=== PATIENT | male | born 1965 | race Two or more races ===

== ENCOUNTER 2025-06-15 21:18 | Inpatient (IN) | payer OTHER ==
[~2025-06-15] VITALS: Ht 170.2 cm; Wt 62.5 kg
[2025-06-15 21:46] LABS: MEAN PLATELET VOLUME 6.7 FL (7.4-10.4); RED CELL DISTRIBUTION WIDTH 14.9 % (11.5-14.5)
--- NOTE | 2025-06-15 21:56 | Physician Documentation ---
History of Present Illness General Chief Complaint: Dizziness Stated Complaint: DIZZINESS Time Seen by MD: 21:40 OK to notify your PCP?: Yes History of Present Illness Initial Comments This is a very pleasant 59-year-old gentleman with a no significant past medical history who presented for evaluation of sudden onset dizziness/near-syncope, diaphoresis, chest pain, shortness a breath shortly prior to arrival. This occurred while he was at work but not actively working. No obvious trigger p rovocation. It is exertional. Not positional. His chest pain radiates into his left upper arm. Never had this in the past. Did not attempt to treat it. No ripping or tearing chest pain. No concern for tobacco, alcohol or illicit substances use History of asthma. Has been using his inhaler daily for the last month. Which is unusual for him. Medication Reconciliation Allergies: Coded Allergies: No Known Allergies (Unverified , 06/15/25) Review of Systems ROS 10 point review of systems was performed and unless noted above in HPI is negative for acute process/complaint. Physical Exam Physical Exam Vital Signs: Temperature: 96.8, Source: Temporal, Heart Rate: 81, Respiratory Rate: 15, BP: 124/73, Pulse Oximetry: 99, Weight: 62.500 Physical Exam GENERAL: Awake, alert, oriented, GCS 15, no apparent distress, non-toxic appearing, answers questions, follows commands appropriately. No longer diaphoretic. Examined in bed 3. HEENT: Atraumatic, normocephalic, pupils equal, extraocular muscles intact, sclerae anicteric, mucus membranes moist, oropharynx is clear, no stridor. NECK: supple, full active range of motion, trachea midline, no thyromegaly, no lymphadenopathy, no JVD. CARDIOVASCULAR: regular rate/rhythm, no murmurs/gallops/rubs, Pulses are 2+ in all extremities and symmetric. Capillary refill less than 2 seconds. PULMONARY: Nonlabored, good air movement ,no respiratory distress, speaking in full sentences, clear to auscultation bilaterally, no wheezing, no ronchi, no rales, no accessory muscle use. GASTROINTESTINAL: Soft, non-tender, non-distended, normal active bowel sounds, no organomegaly, no pulsatile masses, no CVA tenderness. NEUROLOGIC: Lucid with normal mental status. Normal facial symmetry. Moves all extremities symmetrically and with purpose. No truncal ataxia. Speech is fluid without evidence of dysarthria or aphasia, no focal deficits appreciated. MUSCULOSKELETAL: There is full range of motion of all extremities. There is no joint pain or joint swelling or joint erythema. There is no muscle pain or tenderness or swelling. EXTREMITIES: warm, well-perfused, no cyanosis, no clubbing, no edema, no acute deformities. Skin: warm, dry, no rashes or lesions, no jaundice, no petechiae orpurpura. No ecchymosis. PSYCHIATRIC: Normal affect, normal insight, normal concentration. Focused exam: [] Progress Results/Orders Results/Orders Orders - DEMARCO MCKEON DO Chest,Single View (06/15/25 21:25) Monitor (06/15/25 21:25) Saline Lock (06/15/25 21:25) Oxygen (06/15/25 21:25) Electrocardiogram (06/15/25 21:25) Hs Troponin I W Calculations (06/16/25 00:25) Cta Chest Pe (06/15/25 22:57) Completed Orders - DEMARCO MCKEON DO Chest,Single View (06/15/25 21:25) Cbc/Diff (06/15/25 21:25) BMP (06/15/25 21:25) PBNP (06/15/25 21:25) Hs Troponin I W Calculations (06/15/25 21:25) Hs Troponin I W Calculations (06/15/25 23:25) D-Dimer (06/15/25 22:09) Cta Chest Pe (06/15/25 22:57) Iohexol 350mg/Ml 100ml (Omnipaque 350mg/ (06/15/25 23:29) Lorazepam Tablet (Ativan Tablet) (06/15/25 23:50) Medications Received in ER Medications (Trade) Dose Ordered Sig/Alcira Route PRN Reason Start Time Stop Time Status Last Admin Dose Admin (Ativan tablet) 1 mg ONCE ONCE PO 06/15/25 23:50 06/15/25 23:51 DC 06/15/25 23:53 1 MG Vital Signs 06/15/25 06/15/25 06/15/25 06/15/25 21:21 21:43 21:55 23:21 Temp 96.8 Pulse 81 71 68 Resp 15 13 14 13 B/P (MAP) 124/73 128/93 (105) 129/82 (98) Pulse Ox 99 99 97 O2 Flow Rate 0 0 06/15/25 23:53 Resp 15 Laboratory Tests Test 06/15/25 21:35 06/15/25 23:44 White Blood Count 12.7 H Red Blood Count 4.65 L Hemoglobin 13.4 L Hematocrit 40.5 L Mean Corpuscular Volume 87.1 Mean Corpuscular Hemoglobin 28.7 Mean Corpuscular Hemoglobin Concent 33.0 Red Cell Distribution Width 14.9 H Platelet Count 474 H Mean Platelet Volume 6.7 L Neutrophils (%) (Auto) 58.8 Lymphocytes (%) (Auto) 23.7 Monocytes (%) (Auto) 9.0 Eosinophils (%) (Auto) 7.1 H Basophils (%) (Auto) 1.4 H Neutrophils # (Auto) 7.5 Lymphocytes # (Auto) 3.0 Monocytes # (Auto) 1.1 H Eosinophils # (Auto) 0.9 Basophils # (Auto) 0.2 CBC Comment D-Dimer 0.91 H D-Dimer Comment Sodium Level 141 Potassium Level 3.4 L Chloride Level 103 Carbon Dioxide Level 28.1 Anion Gap 10 Blood Urea Nitrogen 18 Creatinine 1.11 H Estimated GFR/1.73 m2 68 BUN/Creatinine Ratio 16.2 Glucose Level 132 H Calcium Level 9.2 Troponin I High Sensitivity 6 7 Pro-B-Type Natriuretic Peptide 71 Albumin 4.0 Chemistry Comments Troponin I High Sens Percent Delta 16 Troponin I Hi Sens Absolute Change 1 EKG/XRAY/CT/US/VASC/MRI EKG : Additional Comment EKG was obtained and interpreted by myself showing ectopic atrial rhythm, rate of 73, normal MD interval, narrow QRS, no QT prolongation, normal axis, no STEMI. Heart Score: Heart Score Response (Comments) Value History Highly Suspicious 2 EKG Normal 0 Age 45-64 1 Risk Factors 1 or 2 risk factors 1 Troponin Normal limit 0 Total 4 Medical Decision Making Findings Facility Status: ED Holds, [facility] process The plan was discussed with the patient, who demonstrates clear understanding of the plan and is in agreement with the plan unless otherwise noted in the chart. All questions have been answered, all concerns were addressed unless otherwise documented. I was available throughout their ED stay for frequent reassessment and questions. Differential Diagnoses (considered and possible or likely): [Differential diagnosis considered includes chest wall pain, pleurisy, pneumonia, pulmonary embolus, GERD, esophagitis, gastritis, anxiety, stress reaction, costochondriti s, acute coronary syndrome, aortic dissection, pericarditis, myocarditis, or pneumothorax.] ??Differential Diagnoses (considered and unlikely, not requiring evaluation currently): [Aortic/great vessels dissection was considered but it is unlikely based on absence of ripping, tearing, migratory chest pain, absence of syncope or focal neurologic deficits, physical examination indicating equal and symmetric pulses.] MDM Data Please see [facility] for the following: Independent Historians and external Records Review. Historian: [Patient] Independent Historians: ?[Record review] Medication Management: [Reviewed medication list] Social History and determinants: [Reviewed] Please see the body of the note for the following: Any independent interpretations of ECG, imaging studies. All vitals signs/haemodynamics, ordered tests were independently reviewed and interpreted by myself. Nursing triage complaint and vitals reviewed, additional nursing notes were reviewed as available and I agree unless otherwise noted or documented in contradiction in the chart Vital Signs: Independently reviewed Labs: Independently interpreted Imaging: Independently interpreted Old Medical Records: Independently reviewed, see [facility] for relevant summary and information Pulse Oximetry: [96%] interpreted as [normal on room air] by me [[employer]: [Regular Rate, Regular rhythm, no ectopy, NSR] reviewed and interpreted by me] Additionally notably showing: [Hemodynamics reviewed. The patient isn't febrile, not tachycardic, no evidence of hypotension respiratory distress. CBC normal coagulation panel shows of the headache D-dimer. Chemistry is unremarkable. Initial troponin is normal.] Tests considered but not ordered include: [Initially did not consider CTA, however we will obtain after positive D-dimer. Echocardiogram and stress test should be done on an inpatient basis] Social Determinants of Health Impact: Patient was evaluated in [facility], or [facility] [place] access to healthcare due to below par ratio of patient to medical providers. [] Comorbid Conditions Impacting Present Evaluation and Care/Treatment: [None reported with the patient] Management Discussions with other Healthcare Providers: [Hospitalist regarding admission] Treatment and Disposition Medication Management (Given or considered): []. See EMR for details Consideration for Hospitalization/Escalation/Deescalation of Care: Admission for observation has been considered, and appears to be necessary for further workup of his chest pain. ?ED Course:?[No clinical deterioration] CTA does not show a PE. Patient will require admission to Internal Medicine service for further ev aluation and management of their disease process. The case was discussed with [resident] of the admitting service and they were made aware of all the patient's active issues, including the above-mentioned history, physical exam findings, and the diagnostic results, as well as our concerns and suspicions, as well as any possible incidental findings and pending test. They agreed with the admission plan to their service, and agreed to assume responsibility for the patient's ongoing care and management at that point in time. Patient was admitted in [stable] condition. ?Shared decision making:?[] Code status:?FULL Please see the full Electronic Medical Record for full details of nursing documentation, medications list, other records of complete past medical history and conditions, vital signs, laboratory studies, and any radiologic study interpretations by radiologists. Portions of this note were completed using [employer] dictation software and as a result there may exist minor errors in spelling. I have reviewed elements of past family and social history and agree as included in note. Departure Disposition: 09 ADMITTED INPATIENT Impression: Primary Impression: Acute chest pain Additional Impressions: Near syncope Elevated d-dimer Condition: Improved Referrals: NO PRIMARY CARE PROVIDER (PCP) Signature Scribe Signature: No scribe Attestation: Date: Jun 15, 2025 Time: 21:55 This note accurately reflects clinical decisions, work performed by myself, Demarco Mckeon, DEMARCO SOSA DO Jun 15, 2025 21:55
--- NOTE | 2025-06-15 21:57 | RADIOLOGY REPORT ---
EXAM: DI CHEST,SINGLE VIEW TECHNIQUE: Single frontal chest radiograph CLINICAL HISTORY: CP COMPARISON: None FINDINGS/IMPRESSION: The lungs are clear. The cardiomediastinal silhouette is unremarkable. No pleural effusion or pneumothorax. No acute osseous abnormality.
[2025-06-15 22:07] LABS: CREATININE 1.11 MG/DL (0.60-1.10); PRO BRAIN NATRIURETIC PEPTIDE 71 PG/ML (0-125); TOTAL CARBON DIOXIDE 28.1 MMOL/L (24-32); eCRCL 64 ML/MIN; eGFR 68 ML/MIN
--- NOTE | 2025-06-15 23:59 | RADIOLOGY REPORT ---
EXAM: CT CTA CHEST PE W/ IV CONTRAST History: Chest pain, shortness a breath, positive D-dimer Comparison Study: None TECHNIQUE: A digital database engineer image was obtained. During the uneventful, intravenous administration of contrast material, multislice data acquisition was obtained through the chest. 3-D postprocessing is performed by technologist including MIP imaging Radiation Dose : CTDI vol 13.35 mGy, DLP 566.65 mGy*cm. Findings: Evaluation is degraded by respiratory motion. Lungs: Minimal basilar atelectasis/scarring. Pleura: Unremarkable Heart/Great vessels: No cardiomegaly or pericardial effusion. No pulmonary embolism. The aorta is unremarkable. Mediastinum: Unremarkable. Soft tissues/Bones: Unremarkable Upper abdomen: The partially visualized upper abdomen is within normal limits. Impression: 1. No pulmonary embolism or acute intrathoracic abnormality identified.
[2025-06-16] VITALS (21 sets, daily range): BP systolic 118–146; BP diastolic 70–87; PULSE 55–87; RESP 12–20; TEMP 97.4–98; O2SAT 95–100
[2025-06-16] MEDS ORDERED: ondansetron/PF 4mg/2ml inj IV PRN (01:40)
[2025-06-16] MEDS ORDERED: magnesium hydroxide 30ml (MOM) UD suspension PO PRN (01:40)
[2025-06-16] MEDS ORDERED: mag hydrox/Alum hydrox/simeth 30ml oral suspension PO PRN (01:40)
[2025-06-16] MEDS ORDERED: potassium Cl 20 mEq SR tablet PO PRN (01:40)
[2025-06-16] MEDS ORDERED: potassium Cl 40MEQ/1/2NS 520ml 520 ML IV PRN (01:40)
[2025-06-16] MEDS ORDERED: magnesium sulf-water 4G/100mL 100 ML IV PRN (01:40)
[2025-06-16] MEDS ORDERED: magnesium sulf-water 2g/50mL 50 ML IV PRN (01:40)
[2025-06-16] MEDS ORDERED: magnesium Cl slow-release 64mg tablet PO PRN (01:40)
[2025-06-16] MEDS ORDERED: HYDROmorphone/PF 0.2 MG/ML SYRINGE IV PRN (01:40)
[2025-06-16] MEDS ORDERED: PERFLUTREN PROTEIN-A MICROSPHR (Optison) 0.22 MG/ML 3ML VIAL IV PRN (02:00)
--- NOTE | 2025-06-16 02:26 | HISTORY AND PHYSICAL-Residence ---
History & Physical Providers to CC Resident Creating Document: DILLON HERNANDEZ, RES ~ History of Present Illness Primary Medical Doctor: IVAN Reason for Admit\Complaint: Chest pain and dizziness History of Present Illness 59 years old male with past medical history of asthma, psoriasis comes to ED with chest pain and dizziness. Patient was driving his car and he suddenly felt left-sided chest 4/10 which is dull aching, nonradiating, associated with palpitation heavy flushing and nausea. He also mentioned having a dizziness during that episode. The episode lasted for 40 minute, it was sudden, and patient denies similar episodes in the past Patient denies any vomiting, loss of conscious, ear fullness, trouble balance and any head injury Patient is a nonsmoker and denies any recent hospitalization, infection, fever. Allergies: Coded Allergies: No Known Allergies (Unverified , 06/15/25) Past Medical History Past Medical History Asthma Psoriasis Past Surgical History Surgical History Comment No past surgical history Past Social History Social History Comment Patient live in his home He is a nonsmoker, occasional alcohol drinker who drinks 3-4 pints per week, no drug use Occupation-dimer PCP-patient currently not having any primary care physician ROS ROS Constitutional: No fever, chills, dizziness, weakness, Eyes: No pain, erythema, discharge, blurring of vision ENT: No sore throat, epistaxis, tinnitus Cardiovascular: Dull left-sided chest pain with palpitation and dizziness, no lower extremity edema, paroxysmal nocturnal dyspnea Respiratory: Mild shortness of breath , No cough, hemoptysis Gastrointestinal: No decrease appetite , No Nausea, vomiting,diarrhea and abdominal pain. Genitourinary: No frequency,urgency,No nocturia, hematuria or dysuria Integumentary: No change in skin, hair, nails. No swelling, bruising, abrasions Neurologic: patient didnot report any symptoms Psychiatric: No delusions, loss of interest in normal activity or change in sleep pattern, hallucinations, suicidal ideations Endocrine: No fatigue, weakness, polydipsia, polyuria, change in appetite, heat or cold intolerance, sweating, dry skin Hematological: No bleeding, petechiae, noted some bruises on left hand Allergies: patient has a history of asthma for which he use inhaler,No urticaria Exam Vitals: Vital Signs Date Time Temp Pulse Resp B/P (MAP) Pulse Ox O2 Delivery O2 Flow Rate FiO2 06/16/25 01:33 76 18 128/76 (93) 98 0 06/15/25 21:21 96.8 General: Patient is,alert, orientedx4 HEENT: Normocephalic and atraumatic, Oral and nasal mucosa is moist. No visible head injuries Neck: Trachea is in midline. No masses or JVD Chest: Normal air movement bilaterally , Bilateral normal breath sounds. No crackles, rhonchi or wheezes Cardiovascular: Regular rate and regular rhythm. S1-S2 normal. No rubs or murmurs Abdomen: No tenderness present. Non distented ,Normoactive bowel sounds Extremities: No cyanosis, clubbing or edema, No deformities, peripheral pulses 2+ QUALITY IMPROVEMENT ANALYST: Patient is alert , awake, speech is clear CN II-XII - intact Normal Tone and Bulk in all extremities Sensation is intact in all extremities Co-ordination is intact Skin: warn and dry Diagnostic Data Last Recorded Lab Results: 06/15/25213406/15/[id number] Diagnostic Data: Laboratory Tests Test 06/15/25 21:35 D-Dimer 0.91 MG/L FEU (0-0.50) H D-Dimer Comment Advance Care Planning Advanced Care plannin - 30 Minutes Additional Plan BUN 59 year old with past medical history of asthma and psoriasis comes to the ED for evaluation dizziness and chest pain Chest pain possible due to Unstable angina Hear Score-3 Patient presented to the ED with dizziness and left-sided chest pain while driving his car which is dull aching 4/10, nonradiating, associated with heavy flushing BP-128/76, pulse-76, SpO2-98 on room air, RR-18 H&H-13.4/40.5, WBC-12.7 Na-141, K 3.4, BUN/creatinine-16.2, Cr-1.11, BUN-18 Troponin-6 < 7 negative ProBNP-71 D-dimer-0.91 Chest x-ray-The lungs are clear. The cardiomediastinal silhouette is unremarkable. No pleural effusion or pneumothorax. No acute osseous abnormality. CTA chest-No pulmonary embolism or acute intrathoracic abnormality identified. Plan: Started aspirin 81 mg p.o. daily Pain control with sublingually nitro p.r.n. Follow-up with lipid panel Follow up with the echocardiogram Orthostatic vitals ordered Continuous telemetry monitoring NPO today Cardiology consult tomorrow, possible Lexiscan Asthma Patient has a history of asthma and he is compliant with home medication Plan: Continue home med after med rec Psoriasis Patient has a history of psoriasis Plan Follow-up with PCP Disposition: Patient will be monitored in the PCU with continuous telemetry with NPO midnight and possible Lexiscan tomorrow after cardiology consult Code : Full Dillon Hernandez PGY1-Internal Medicine Resident Plan reviewed with bedside team. Patient seen through remote audiovisual assessment through HIPAA compliant setup. All labs, flowsheets, and images reviewed Cumulative nonprocedural care time spent in directed patient care = 30 min Date of Service: Jun 16, 2025 Billing Provider: NEWTON AWAD MD, SATISH, RES Jun 16, 2025 02:26 NEWTON AWAD MD Jun 16, 2025 08:13
[2025-06-16] MEDS ORDERED: FLUT1BLS13 PO (03:24)
[2025-06-16] MEDS ORDERED: ALBUTEROL (03:24)
[2025-06-16] MEDS: ipratropium/albuterol 3ml nebule NEB ONE (05:21)
--- NOTE | 2025-06-16 05:59 | ELECTROCARDIOGRAPH REPORT ---
[facility] Test Date: 2025-06-15 Test Time: 21:31:30 Pat Name: VERONICA MORA Department: EMERGENCY ROOM Room: [place] [address] Gender: M Bead Trimmer: : 1965 Requested By: FRANCOIS MCKEON Order Number: [id number] Reading MD: Measurements Intervals [place] Rate: 73 P: 234 ID: [id number] QRS: 42 QRSD: 91 T: 50 QT: 432 QTc: 476 Interpretive Statements Sinus or ectopic atrial rhythm Borderline prolonged QT interval Baseline wander in lead(s) V3 Please click the below link to view image of tracing.
[2025-06-16] MEDS ORDERED: aminophylline 250mg/10ml inj. IV PRN (06:55)
[2025-06-16] MEDS ORDERED: metoprolol tartrate 1mg/ml inj IV PRN (06:55)
[2025-06-16 07:12] LABS: CHOL/HDL RATIO 2.7 (0.00-4.99); LDL CHOLESTEROL 76 MG/DL (50-100)
[2025-06-16] MEDS: docusate sod 100mg capsule PO SCH (08:00)
[2025-06-16] MEDS: FLUTICASONE PROPION PO SCH (08:00)
[2025-06-16] MEDS: K and/or MAG REPLACEMENT MC SCH (08:00)
[2025-06-16] MEDS: SALMETEROL PO SCH (08:00)
[2025-06-16] MEDS: regadenoson 0.4mg/5ml syringe IV PRN (10:59)
--- NOTE | 2025-06-16 12:14 | RADIOLOGY REPORT ---
Reason for study/Clinical History: Unstable angina Comparison Study: None Myocardial Perfusion Study with SPECT Technique: The patient received an intravenous injection of 8.5 mCi of technetium-99m Sestamibi while at rest. After a short delay, SPECT tomographic images of the heart were obtained. The patient then went to the stress lab where they received an intravenous Lexiscan utilizing standard protocol. 34 mCi of technetium-99m Sestamibi was injected intravenously immediately after the start of the infusion. Gated SPECT tomographic images of the heart were acquired and processed. Findings: Rotating planar images show no significant attenuation artifact. The left ventricular size is within normal limits. Stress tomographic images demonstrate normal perfusion. Resting tomographic images demonstrate a similar pattern. Gated portion of the study shows normal wall motion and myocardial thickening. The left ventricular ejection fraction is 77 %. (normal greater than 50%) Impression: Normal left ventricular size, wall motion, and function, without evidence of infarction or of myocardium at ischemic risk. The left ventricular ejection fraction is 77 %.
[2025-06-16] MEDS: aspirin 81mg, enteric-coated 1 TAB TABLET.DR PO SCH (13:22)
[2025-06-16] MEDS: potassium Cl 20 mEq SR tablet PO PRN (13:28)
[2025-06-16] MEDS ORDERED: albuterol 2.5 MG/3 ML nebule NEB PRN (15:50)
[2025-06-16] MEDS: ipratropium/albuterol 3ml nebule NEB PRN (17:43)
--- NOTE | 2025-06-16 22:25 | PROGRESS NOTE ---
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 I asked him how heavy the linen cart was and he informed me that has approximately 600 lb. Objective Vital Signs Date Time Temp Pulse Resp B/P (MAP) Pulse Ox O2 Delivery O2 Flow Rate FiO2 06/16/25 20:21 76 16 98 Room Air* 0 21 06/16/25 16:00 97.6 128/70 (89) Result Diagram: 06/15/25213406/15/252134 Gen. No acute distress alert and oriented 4 Lungs clear to ascultation bilaterally, no wheezes rales or rhonchi appreciated Heart normal sinus rhythm no murmurs rubs or clicks noted Abdomen soft nontender bowel sounds are normoactive Lower extremities no clubbing cyanosis, nor edema appreciated bilaterally Muscle skeletal point tenderness the left lower ribcage anteriorly at the costochondral junction Coagulation Studies Laboratory Tests Test 06/15/25 21:35 D-Dimer 0.91 MG/L FEU (0-0.50) H D-Dimer Comment Problem\Assessment\Plan # chest pain Highly likely secondary to costochondritis Lexiscan stress test was negative Serial troponins are negative Echocardiogram # asthma- chronic not in acute exacerbation PRN DuoNeb PRN albuterol nebs # psoriasis Awaiting med reconciliation Disposition: Anticipate discharge in the a.m. Date of Service: Jun 16, 2025 Billing Provider: KINGS MCNEILL DO Common Visit Codes: NOT BILLABLE (Admitted after midnight to be billed by cogeneration technician) KINGS MCNEILL DO Jun 16, 2025 22:25
--- NOTE | 2025-06-16 23:51 | CARDIOLOGY REPORT ---
APPROVED REPORT EXAM: Comprehensive 2D, Doppler, and color-flow Echocardiogram. Patient Location: [address] Heart Rate: 50's bpm Rhythm: SINUS BRADYCARDIA Indications CORONARY ARTERY DISEASE Shovel Operator: NONE Previous echo: NONE 2D Dimensions RVDd 2.9 cm IVSd 1.1 (0.7-1.1cm) LVDd 4.4 cm PWd 1.0 (0.7-1.1cm) IVSs 1.2 (0.8-1.2cm) LVDs 3.1 (2.5-4.0cm) PWs 1.1 (0.8-1.2cm) LVOT Diameter 2.05 (1.8-2.4cm) LVEF(%) 56.3 (>50%) IVC 14.37 mm FS (%) 29.2 % SV 50.6 ml CO 3.1 L/min M-Mode Dimensions Left Atrium(MM) 3.84 (2.5-4.0cm) Aortic Root 3.08 (2.2-3.7cm) Aortic Cusp Exc 2.05 (1.5-2.0cm) Aortic Valve AoV Peak Jerome. 136.2 cm/s AoV VTI 26.4 cm AO Peak GR. 7.4 mmHg AO Mean GR. 3 mmHg LVOT VTI 23.28 cm LVOT Peak Jerome. 107.2 cm/s MARTY(VTI)/BSA 2.93 cm2/m2 MARTY (VTI) 2.93 cm2 Mitral Valve MV Peak Gr. 3 mmHg MV PHT 64 ms MVA (PHT) 3.44 cm2 MV VMax 80.0 cm/s LEFT VENTRICLE Normal LV size and wall thickness. Overall systolic function is normal. LVEF is 55-60%. RIGHT VENTRICLE RV is normal size and function. ATRIA The left atrium size is normal. AORTIC VALVE Trileaflet AV appears mildly sclerotic without stenosis. No insufficiency. MITRAL VALVE Mild MV annular calcification without stenosis. Trace regurgitation. TRICUSPID VALVE TV appears structurally normal with trace regurgitation. PULMONIC VALVE Normal PV without stenosis, no insufficiency. GREAT VESSELS The aortic root is normal in size. IVC is normal in size and collapses greater than 50% with inspiration. PERICARDIUM Normal pericardium. No effusion. Other Information Study Quality: Adequate Conclusion Normal LV size and wall thickness. Overall systolic function is normal. LVEF is 55-60%. RV is normal size and function. The left atrium size is normal. Trileaflet AV appears mildly sclerotic without stenosis. No insufficiency. Mild MV annular calcification without stenosis. Trace regurgitation. TV appears structurally normal with trace regurgitation. Normal pericardium. No effusion.
[2025-06-17 02:00] VITALS: BP 103/63; PULSE 78; RESP 17; TEMP 97.6; O2SAT 97
[2025-06-17 06:00] VITALS: BP 136/99; PULSE 92; RESP 18; TEMP 97.5; O2SAT 96
[2025-06-17 06:43] LABS: MEAN PLATELET VOLUME 6.8 FL (7.4-10.4); RED CELL DISTRIBUTION WIDTH 14.9 % (11.5-14.5)
[2025-06-17 07:05] LABS: CREATININE 1.18 MG/DL (0.60-1.10); TOTAL CARBON DIOXIDE 24.0 MMOL/L (24-32); eCRCL 60 ML/MIN; eGFR 63 ML/MIN
[2025-06-17 08:00] VITALS: RESP 18; O2SAT 96
[2025-06-17 08:26] VITALS: PULSE 78; RESP 16; O2SAT 98
[2025-06-17 08:31] VITALS: PULSE 70; RESP 17
[2025-06-17 11:00] VITALS: BP 128/79; PULSE 95; RESP 20; TEMP 98; O2SAT 96
--- NOTE | 2025-06-17 20:19 | DISCHARGE SUMMARY ---
Discharge Summary Providers to CC ~ Discharge Summary Admission Diagnosis: CHEST PAIN Hospital Course DATE OF ADMISSION: 06/16/2025 DATE OF DISCHARGE: 06/17/2025 Discharge Diagnosis\\Comment: Chest pain likely secondary to costochondritis mi ruled out, asthma, psoriasis Operations\\Procedures: None Consultants: None Complications: None Condition on DC: Stable Continued Medications: [Albuterol] () Fluticasone Propion/Salmeterol (Fluticasone-Salmeterol 250-50) 250 Mcg-50 Mcg/Dose Blst.w.dev 1 PUFFS PO BID Discharge Summary: The patient was admitted by resident physician NYA Newell , under the supervision of NEWTON Ac MD with the following HPI:"59 years old male with past medical history of asthma, psoriasis comes to ED with chest pain and dizziness. Patient was driving his car and he suddenly felt left-sided chest 4/10 which is dull aching, nonradiating, associated with palpitation heavy flushing and nausea. He also mentioned having a dizziness during that episode. The episode lasted for 40 minute, it was sudden, and patient denies similar episodes in the past Patient denies any vomiting, loss of conscious, ear fullness, trouble balance and any head injury Patient is a nonsmoker and denies any recent hospitalization, infection, fever." The patient has a a Lexiscan cardiac stress test that was negative for any reversible ischemia. His echocardiogram demonstrated an LVEF of 55 60% normal function there were no significant findings discovered. The patient had mildly elevated D-dimer of 0.91 on admission the patient has a CTA of the chest on admission and there was no pulmonary embolism discovered. 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 I asked him how heavy the linen cart was and he informed me that has approximately 600 lb. And the patient had significant point tenderness at the left lower ribcage anteriorly at the costochondral junction which was consistent with costochondritis. The patient has chronic asthma and received albuterol treatments as needed during hospitalization he was back on his home inhaler upon discharge The patient has psoriasis on his upper extremity disease currently receives immunologic injections in the office every three weeks. Gen. No acute distress alert and oriented 4 Lungs clear to ascultation bilaterally, no wheezes rales or rhonchi appreciated Heart normal sinus rhythm no murmurs rubs or clicks noted Abdomen soft nontender bowel sounds are normoactive Lower extremities no clubbing cyanosis, nor edema appreciated bilaterally Muscle skeletal point tenderness the left lower ribcage anteriorly at the costochondral junction The patient felt ready to be discharged and was medically cleared to be discharged on 06/17/2025 The patient was seen and evaluated on day of discharge. Time spent on discharge 25 minutes The patient recovered sooner than to be expected with chest pain to evaluate for mi. *Problems/Diagnosis: (1) Acute chest pain Status: Acute Total Time Spent on D/C: Up to 30 Minutes Date of Service: Jun 17, 2025 Billing Provider: KINGS MCNEILL DO Common Visit Codes: [id number] DISCH DAY <30MIN KINGS MCNEILL DO Jun 17, 2025 20:18
== END 2025-06-17 15:41 | disposition home or self-care (01) | DRG 206 ==
LOC: ER 21:19 → ED HOLD 06-16 01:04 → EDBEDREQ 06-16 03:08 → PCU 3S 06-16 03:50
PROVIDERS: ADMIT Internal Medicine Critical Care Medicine; ATTEND Family Medicine
PROC: B32T1ZZ Computerized Tomography (CT Scan) of Left Pulmonary Artery using Low Osmolar Contrast (ICD-10-PCS; 2025-06-15)
PROC: B32S1ZZ Computerized Tomography (CT Scan) of Right Pulmonary Artery using Low Osmolar Contrast (ICD-10-PCS; 2025-06-15)
PROC: 4A02XM4 Measurement of Cardiac Total Activity, External Approach (ICD-10-PCS; principal; 2025-06-16)
PROC: 3E073KZ Introduction of Other Diagnostic Substance into Coronary Artery, Percutaneous Approach (ICD-10-PCS; 2025-06-16)
DX: M94.0 Chondrocostal junction syndrome [Tietze] (principal); J45.909 Unspecified asthma, uncomplicated; L40.9 Psoriasis, unspecified
CPT/HCPCS: 36415; 71045; 71275; 78452; 80048; 80053; 80061; 83880; 84484; 85025; 85379; 87081; 93005; 93017; 93306; 94640; 94760; 99285; A9500; G0378; J2785; J7030; Q9967